=== PATIENT | female | born 1960 | race Caucasian/White ===

== ENCOUNTER 2017-07-15 20:19 | Emergency (ER) | payer OTHER ==
[~2017-07-15] VITALS: Ht 165.1 cm; Wt 64.3 kg
[2017-07-15 20:31] VITALS: BP 118/97
[2017-07-15] MEDS ORDERED: ZOFRAN ODT4 MG PO (22:03)
[2017-07-15] MEDS ORDERED: PERCOCET 5/31 TABLET PO (22:03)
[2017-07-15] MEDS ORDERED: CLEOCIN300 MG PO (22:03)
[2017-07-15] MEDS ORDERED: NAPROSYN500 MG PO (22:03)
== END 2017-07-15 22:23 | disposition left against medical advice (07) ==
LOC: EME 20:19
DX: K04.7 Periapical abscess without sinus (principal); R00.0 Tachycardia, unspecified; F17.200 Nicotine dependence, unspecified, uncomplicated
CPT/HCPCS: 99281; 99283